=== PATIENT | female | born 1960 ===

== ENCOUNTER 2018-06-24 06:23 | Day surgery (SDC) | payer OTHER ==
[~2018-06-24 06:23] MED LIST: DIOVAN160 M1 PO; IBRA PO; IBUPROFEN800 MG PO; LIDODERM30 EA TP; MEDROL4 MG PO; ORPH100T PO; PAXIL20 MG PO; PROTECT PLUS A1 EACH PO; TAMOXIFEN CITRA20 MG PO; WELLBUTRIN75 MG PO; [UNRECOGNIZED DRUG - OTHER] PO
== END 2018-06-24 15:10 | disposition home or self-care (01) ==
LOC: CIR.AMB 06:23
DX: N84.1 Polyp of cervix uteri (principal)